=== PATIENT | male | born 1960 | race Caucasian/White ===

== ENCOUNTER → 2016-08-17 | Outpatient (CLI) | payer SELFPAY ==
--- NOTE | 2016-08-19 16:25 | CR ---
EXAM DATE: 08/17/16 PATIENT'S AGE: 55 Patient: NAHEED JAIN Facility: [place], [place] Site . Site : [id number] Study: XRay Chest [id number]/28/2017 10:45:48 AM Ordering Physician: Micaela Wen Final Report: INDICATION: CHEST PAIN AND COUGH FOR PAST 3 DAYS INDICATION: Chest pain, cough. TECHNIQUE: Chest 2 views. COMPARISON: None FINDINGS: Cardiovascular and mediastinum: Heart size and vasculature are normal in caliber and appearance. Mediastinum is within normal limits. Lungs and pleural spaces: Lungs are clear. No sign of infiltrate or mass. No sign of pleural effusion. No pneumothorax. Bones and soft tissues: No significant findings. IMPRESSION: Lungs are clear. Dictated by Spike Trejo MD @ 08/17/2016 10:57:23 AM Dictated by: Spike Trejo MD @ 08/17/2016 10:57:30 (Electronic Signature) Report Signed by Proxy. [facility]
== END ==
LOC: MW.CHFP 10:22
PROVIDERS: ATTEND Student in an Organized Health Care Education/Training Program
DX: R05 Cough (principal); R07.9 Chest pain, unspecified
CPT/HCPCS: 36415; 71020; 71020-26; 85025

== ENCOUNTER → 2016-08-20 | Outpatient (CLI) | payer SELFPAY ==
[2016-08-20 12:51] LABS: CHLORIDE,CL 106 mmol/L (98-110); SODIUM,NA 141 mmol/L (136-146)
== END ==
LOC: MW.CHFP 12:03
PROVIDERS: ATTEND Student in an Organized Health Care Education/Training Program
DX: I10 Essential (primary) hypertension (principal)
CPT/HCPCS: 36415; 80048